=== PATIENT | female | born 1940 | race Caucasian/White ===

== ENCOUNTER 2018-07-04 08:47 | Observation (INO) | payer MEDICARE, OTHER ==
[~2018-07-04] VITALS: Ht 154.9 cm; Wt 77.3 kg
[2018-07-04 09:27] LABS: BASOPHILS % (AUTO) 0.5 % (0.0-5.0); EOSINOPHILS % (AUTO) 1.3 % (0.0-8.0); HEMATOCRIT 34.8 % (36-48); LYMPHOCYTES % (AUTO) 22.2 % (21.0-51.0); MEAN CORPUSCULAR HEMOGLOBIN 30.3 pg (27.0-33.0); MEAN CORPUSCULAR HGB CONC 34.2 g/dL (32.0-36.0); MEAN CORPUSCULAR VOLUME 88.6 fL (79-99); MONOCYTES % (AUTO) 7.3 % (3.0-13.0); NEUTROPHILS % (AUTO) 68.7 % (40.0-77.0); PLATELET COUNT (AUTO) 231 K/uL (130-400); RED BLOOD CELL COUNT(AUTO) 3.93 MIL/uL (4.00-5.50); RED CELL DISTRIBUTION WIDTH 14.3 % (11.0-15.5); WHITE BLOOD COUNT (AUTO) 5.3 K/uL (4.8-10.8)
[2018-07-04 09:36] LABS: CREATININE 0.9 mg/dL (0.5-1.5); POTASSIUM 3.7 mmol/L (3.5-5.1)
[2018-07-04 09:41] LABS: BILIRUBIN,TOTAL 0.7 mg/dL (0.2-1.0); TOTAL PROTEIN, SERUM 7.9 g/dL (6.0-8.3)
[2018-07-04 10:03] LABS: B-TYPE NATRIURETIC PEPTIDE 688 pg/mL (0-100)
[2018-07-04 10:57] LABS: APPEARANCE,URINE Clear (CLEAR); BILIRUBIN,URINE Negative (NEGATIVE); COLOR,URINE Yellow (YELLOW); GLUCOSE, URINE (UA) Negative (NEGATIVE); KETONES,URINE Negative (NEGATIVE); LEUKOCYTE ESTERASE ,URINE Trace (NEGATIVE); NITRATE,URINE Negative (NEGATIVE); OCCULT BLOOD,URINE Negative (NEGATIVE); PROTEIN,URINE Negative (NEGATIVE); UROBILINOGEN,URINE 0.2 mg/dL (0.2-1.0)
[2018-07-04 11:21] LABS: BACTERIA,URINE Rare /HPF (None Seen); RBC,URINE 0-1 /HPF (0-1); SQUAMOUS EPITHELIAL CELL,UR Rare /HPF (0-2)
[2018-07-04] MEDS ORDERED: FUROSEMIDE 10 MG/ML 2ML VIAL ONE (11:30)
[2018-07-04] MEDS ORDERED: SODIUM CHLORIDE 0.9% 1000ML 1,000 ML IV SCH (16:45)
[2018-07-04] MEDS ORDERED: SODIUM CHLORIDE 0.9% 1000ML 1,000 ML IV ONE (19:15)
[2018-07-04 19:50] LABS: CREATINE KINASE, TOTAL 68 U/L (21-232); MYOGLOBIN 41 ng/mL (10-92); TROPONIN I < 0.04 ng/mL (0.00-0.06)
[2018-07-04 20:28] VITALS: BP 146/90
[2018-07-04 23:00] VITALS: BP 141/77
[2018-07-05 03:00] VITALS: BP 138/64
[2018-07-05 04:04] LABS: HEMATOCRIT 34.1 % (36-48); MEAN CORPUSCULAR HEMOGLOBIN 29.7 pg (27.0-33.0); MEAN CORPUSCULAR HGB CONC 33.5 g/dL (32.0-36.0); MEAN CORPUSCULAR VOLUME 88.8 fL (79-99); NUCLEATED RED BLOOD CELLS 0.1 % (0.0-0.19); PLATELET COUNT (AUTO) 198 K/uL (130-400); RED BLOOD CELL COUNT(AUTO) 3.84 MIL/uL (4.00-5.50); RED CELL DISTRIBUTION WIDTH 14.1 % (11.0-15.5); WHITE BLOOD COUNT (AUTO) 4.6 K/uL (4.8-10.8)
[2018-07-05 04:30] LABS: CARBON DIOXIDE 34 mmol/L (21-32); CHLORIDE 103 mmol/L (101-111); CREATINE KINASE, TOTAL 64 U/L (21-232); CREATININE 0.9 mg/dL (0.5-1.5); GLOMERULAR FILTR. RATE CALC 65 mL/min (>60); GLUCOSE,RANDOM 95 mg/dL (70-105); MYOGLOBIN 45 ng/mL (10-92); POTASSIUM 3.3 mmol/L (3.5-5.1); SODIUM SERUM 144 mmol/L (136-145); TROPONIN I < 0.04 ng/mL (0.00-0.06); UREA NITROGEN, BLOOD 16 mg/dL (7-18)
[2018-07-05 04:36] LABS: B-TYPE NATRIURETIC PEPTIDE 469 pg/mL (0-100)
[2018-07-05 07:44] VITALS: BP 139/81
--- NOTE | 2018-07-05 08:03 | NUR ---
Report given to Ant Martinez R.N. Patient in stable condition.
[2018-07-05] MEDS ORDERED: ENOXAPARIN SODIUM 40 MG/0.4 ML SYRINGE SQ SCH (09:00)
[2018-07-05] MEDS: FAMOTIDINE/PF 20 MG/2 ML VIAL IV SCH (09:12)
[2018-07-05] MEDS: FUROSEMIDE 40 MG TABLET PO SCH (09:12)
[2018-07-05 11:34] VITALS: BP 135/72
[2018-07-05] MEDS ORDERED: METOPROLOL TARTRATE 25 MG TAB PO SCH (12:49)
[2018-07-05 13:15] LABS: CREATINE KINASE, TOTAL 89 U/L (21-232); MYOGLOBIN 61 ng/mL (10-92); TROPONIN I < 0.04 ng/mL (0.00-0.06)
[2018-07-05 16:22] VITALS: BP 144/80
--- NOTE | 2018-07-05 16:31 | NUR ---
DC PLAN VISITED WITH PATIENT. PATIENT LIVES WITH SON. INDEPENDENT ABLE TO PERFORM ADL'S. PATIENT HAS NO SERVICES OR DME'S. FEELS SAFE TO RETURN HOME. Addendum: 07/05/18 at 1631 by LUCAS VOGT RN CM Amended: Links added.
[2018-07-05] MEDS ORDERED: APIX5TAB PO (16:43)
[2018-07-05] MEDS ORDERED: LOSA25TA41 PO (16:43)
[2018-07-05] MEDS ORDERED: MULT-88 PO (16:43)
[2018-07-05] MEDS ORDERED: MAGN500C15 PO (16:43)
[2018-07-05] MEDS ORDERED: METO-391 PO (16:43)
[2018-07-05] MEDS ORDERED: FURO20TA4 PO (16:43)
[2018-07-05] MEDS ORDERED: SIME125C81 PO (16:43)
[2018-07-05] MEDS ORDERED: METO-409 PO (16:43)
[2018-07-05] MEDS ORDERED: SIMV10TA6 PO (16:43)
[2018-07-05 19:59] VITALS: BP 122/65
[2018-07-05] MEDS ORDERED: POTASSIUM CHLORIDE 20MEQ/100ML 100 ML IV PRN (21:00)
[2018-07-05] MEDS ORDERED: POTASSIUM CHLORIDE 10% ELIXIR 20 MEQ/15 ML UDCUP PO PRN (21:00)
[2018-07-05] MEDS ORDERED: LIDOCAINE HCL-MPF 1% 2ML VIAL IVP PRN (21:00)
[2018-07-05] MEDS: APIXABAN 5 MG TABLET PO SCH (22:24)
[2018-07-05] MEDS: METOPROLOL TARTRATE 25 MG TAB PO SCH (22:24)
[2018-07-05 23:31] VITALS: BP 127/87
[2018-07-06 04:02] VITALS: BP 134/64
[2018-07-06 06:00] LABS: HEMATOCRIT 35.9 % (36-48); MEAN CORPUSCULAR HEMOGLOBIN 30.2 pg (27.0-33.0); MEAN CORPUSCULAR HGB CONC 34.2 g/dL (32.0-36.0); MEAN CORPUSCULAR VOLUME 88.4 fL (79-99); PLATELET COUNT (AUTO) 223 K/uL (130-400); RED BLOOD CELL COUNT(AUTO) 4.06 MIL/uL (4.00-5.50); WHITE BLOOD COUNT (AUTO) 4.6 K/uL (4.8-10.8)
[2018-07-06 06:08] LABS: MAGNESIUM 1.9 mg/dL (1.80-2.40); POTASSIUM 3.2 mmol/L (3.5-5.1)
[2018-07-06] MEDS: POTASSIUM CHLORIDE 20 MEQ ERTAB PO PRN ×3 (06:56→11:56)
[2018-07-06 06:59] LABS: B-TYPE NATRIURETIC PEPTIDE 307 pg/mL (0-100)
[2018-07-06 07:51] VITALS: BP 119/95
[2018-07-06] MEDS: FAMOTIDINE/PF 20 MG/2 ML VIAL IV SCH (08:55)
[2018-07-06] MEDS: APIXABAN 5 MG TABLET PO SCH (08:55)
[2018-07-06] MEDS: FUROSEMIDE 40 MG TABLET PO SCH (08:56)
[2018-07-06] MEDS: METOPROLOL TARTRATE 25 MG TAB PO SCH (08:56)
[2018-07-06] MEDS ORDERED: LOSARTAN 50 MG TABLET PO SCH (09:00)
[2018-07-06 11:06] VITALS: BP 90/63
[2018-07-06 16:15] VITALS: BP 101/69
[2018-07-06] MEDS ORDERED: FURO20TA4 PO (16:30)
== END 2018-07-06 16:50 | disposition home or self-care (01) ==
LOC: EDH 08:47 → EDHIP 16:10 → 2DH 19:44
PROVIDERS: ADMIT Internal Medicine; ATTEND Internal Medicine
DX: I11.0 Hypertensive heart disease with heart failure (principal); I50.43 Acute on chronic combined systolic (congestive) and diastolic (congestive) heart failure; I48.2 Chronic atrial fibrillation; E78.5 Hyperlipidemia, unspecified; D68.59 Other primary thrombophilia; E66.9 Obesity, unspecified; I25.5 Ischemic cardiomyopathy; I42.0 Dilated cardiomyopathy; I48.0 Paroxysmal atrial fibrillation; G62.9 Polyneuropathy, unspecified; F17.210 Nicotine dependence, cigarettes, uncomplicated; F03.90 Unspecified dementia, unspecified severity, without behavioral disturbance, psychotic disturbance, mood disturbance, and anxiety; Z80.1 Family history of malignant neoplasm of trachea, bronchus and lung; Z82.49 Family history of ischemic heart disease and other diseases of the circulatory system; Z86.73 Personal history of transient ischemic attack (TIA), and cerebral infarction without residual deficits; Z90.710 Acquired absence of both cervix and uterus; Z92.21 Personal history of antineoplastic chemotherapy; Z95.810 Presence of automatic (implantable) cardiac defibrillator; Z79.01 Long term (current) use of anticoagulants; Z79.899 Other long term (current) drug therapy
CPT/HCPCS: 36415 ×3; 71045; 71275; 80048 ×2; 80053; 81001; 82550 ×3; 83735; 83874 ×3; 83880 ×3; 84484 ×4; 85025; 85027 ×2; 93005 ×4; 96372; 96374; 96376; 99284; A4600; G0378 ×49; J1650; J1940; J3490 ×2; J7030

== ENCOUNTER 2020-02-02 23:57 | Inpatient (IN) | payer MEDICARE ==
[~2020-02-02] VITALS: Ht 157.5 cm; Wt 90.3 kg
[~2020-02-02 23:57] MED LIST: APIX5TAB PO; CHOL200059 PO; FOLI0.4T2 PO; FURO20TA4 PO; LEVO500T89 PO; LOSA25TA41 PO; MAGN500C15 PO; METO-409 PO; MULT-1203 PO; PRED20B PO; PREG50CA63 PO; SIMV10TA97 PO
[2020-02-03] MEDS ORDERED: METHYLPREDNISOLONE SOD SUCC 125MG/2ML VIAL ONE (00:29)
[2020-02-03] MEDS ORDERED: ALBUTEROL INHALER 90MCG/INH IH ONE (00:29)
[2020-02-03 00:44] LABS: BASOPHILS % (AUTO) 0.2 % (0.0-5.0); EOSINOPHILS % (AUTO) 2.2 % (0.0-8.0); LYMPHOCYTES % (AUTO) 23.1 % (21.0-51.0); MEAN CORPUSCULAR HEMOGLOBIN 29.3 pg (27.0-33.0); MEAN CORPUSCULAR HGB CONC 32.9 g/dL (32.0-36.0); MEAN CORPUSCULAR VOLUME 89.3 fL (79-99); MONOCYTES % (AUTO) 7.5 % (3.0-13.0); NEUTROPHILS % (AUTO) 66.6 % (40.0-77.0); PLATELET COUNT (AUTO) 190 K/uL (130-400); RED BLOOD CELL COUNT(AUTO) 3.92 MIL/uL (4.00-5.50); RED CELL DISTRIBUTION WIDTH 13.4 % (11.0-15.5); WHITE BLOOD COUNT (AUTO) 5.1 K/uL (4.8-10.8)
[2020-02-03 00:46] LABS: INR 0.97 (0.85-1.15); PARTIAL THROMBOPLASTIN TIME 24.3 SEC (26.3-35.5); PROTHROMBIN TIME 10.5 SEC (9.6-11.6)
[2020-02-03 00:48] LABS: CREATININE 1.7 mg/dL (0.5-1.5)
[2020-02-03 00:53] LABS: ALBUMIN 3.4 g/dL (3.5-5.0); BILIRUBIN,TOTAL 0.3 mg/dL (0.2-1.0); TOTAL PROTEIN, SERUM 7.3 g/dL (6.0-8.3)
[2020-02-03 01:01] LABS: ABG BASE EXCESS 0.5 mmol/L (-2.0-3.0); ABG HCO3 24.8 mmol/L (21.0-28.0); ABG OXYGEN SATURATION 98.3 % (95.0-99.0); ABG PCO2 39 mmHg (32-45)
[2020-02-03] MEDS ORDERED: SODIUM CHLORIDE 0.9% 1000ML 1,000 ML IV SCH (02:46)
[2020-02-03] MEDS ORDERED: NITROGLYCERIN 0.4 MG SL TAB SL PRN (03:00)
[2020-02-03] MEDS ORDERED: ALBUTEROL SULFATE 0.083% 2.5 MG/3 ML INH IH PRN (03:00)
[2020-02-03] MEDS ORDERED: ONDANSETRON HCL 4 MG/2 ML VIAL IV PRN (03:00)
[2020-02-03] MEDS ORDERED: ACETAMINOPHEN 325 MG TAB PO PRN ×2 (03:00)
[2020-02-03] MEDS ORDERED: SODIUM CHLORIDE 0.9% 500ML 500 ML IV ONE (04:24)
[2020-02-03] MEDS ORDERED: ALBUTEROL INHALER 90MCG/INH IH PRN (05:15)
[2020-02-03] MEDS ORDERED: DILTIAZEM HCL 60 MG TABLET PO SCH (05:15)
[2020-02-03] MEDS ORDERED: DILTIAZEM HCL 60 MG TABLET ONE (05:21)
[2020-02-03] MEDS ORDERED: IPRATROPIUM/ALBUTEROL SULFATE 3 ML SOLUTION IH SCH (06:00)
[2020-02-03] MEDS ORDERED: APIXABAN 2.5 MG TABLET PO ONE (08:37)
[2020-02-03] MEDS ORDERED: SIMVASTATIN 10 MG TABLET ONE (08:37)
[2020-02-03] MEDS ORDERED: METOPROLOL TARTRATE 50 MG TAB ONE (08:38)
[2020-02-03] MEDS ORDERED: PREGABALIN 25 MG CAP ONE (08:38)
[2020-02-03] MEDS ORDERED: HEPARIN SODIUM 5000UNIT/ML 1ML VIAL SQ SCH (09:00)
[2020-02-03] MEDS: PREGABALIN 25 MG CAP PO SCH ×2 (09:00→21:01)
[2020-02-03] MEDS: SIMVASTATIN 10 MG TABLET PO SCH (09:00)
[2020-02-03] MEDS: APIXABAN 5 MG TABLET PO SCH ×2 (09:00→21:01)
[2020-02-03] MEDS: METOPROLOL SUCCINATE 50 MG TAB.SR.24H PO SCH (09:00)
[2020-02-03] MEDS ORDERED: METOPROLOL SUCCINATE 50 MG TAB.SR.24H PO SCH (09:00)
[2020-02-03 11:30] VITALS: BP 129/62
[2020-02-03] MEDS ORDERED: MATURE MULTI PO (13:19)
[2020-02-03] MEDS ORDERED: MEMA7CAP2 PO (13:19)
[2020-02-03] MEDS ORDERED: CHOL500051 PO (13:19)
[2020-02-03] MEDS ORDERED: VITA100049 PO (13:19)
[2020-02-03] MEDS ORDERED: SIME125C81 PO (13:19)
[2020-02-03 16:00] VITALS: BP 127/71
--- NOTE | 2020-02-03 17:37 | NUR ---
VISHAL NOTE/IA UNABLE TO MEET IN ROOM WITH PATIENT, NEXT OF KIN CALLED, AXEL LUA. PER SON, PATIENT LIVES WITH HIM, IS INDEPENDENT WITH ADLS, NO USE OF HOME HEALTH OR PROVIDER, HAS FREDI AND PORSHA, AND ALVAREZ IN SOD IN USE. PER SON, FEELS SAFE FOR PATIENT TO RETURN HOME ONCE DISCHARGED. Addendum: 02/03/20 at 1739 by GLORY COCHRAN RN CM Amended: Links added.
--- NOTE | 2020-02-03 17:48 | NUR ---
Neeraj ROMAN PA-C IN ROOM FOR CONSULT, ASSESSING/SPEAKING WITH PT. RE:PLAN OF CARE. QUESTIONS ANSWERED BY JOSE.
[2020-02-03 20:00] VITALS: BP 115/65
[2020-02-03 21:34] VITALS: BP 130/59
--- NOTE | 2020-02-03 23:55 | NUR ---
blood culture RECEIVED RESULT FROM LAB BLOOD CULTURE GRAM + COCCI IN CLUSTER. CARPET REPAIRER LUCIO INFORMED. SHE SAID SHE WILL PUT ON ORDERS FOR ANTIBIOTIC. PENDING
[2020-02-04] VITALS (7 sets, daily range): BP systolic 109–155; BP diastolic 51–76
[2020-02-04] MEDS ORDERED: VANCOMYCIN PROTOCOL PER PHARMACY IV SCH (00:15)
[2020-02-04] MEDS: VANCOMYCIN 1GM+NS 250ML 250 ML IV SCH ×2 (02:06→04:11)
[2020-02-04] MEDS: APIXABAN 5 MG TABLET PO SCH ×2 (09:00→09:56)
[2020-02-04] MEDS: PREGABALIN 25 MG CAP PO SCH ×2 (09:57→20:55)
[2020-02-04] MEDS: SIMVASTATIN 10 MG TABLET PO SCH (09:57)
[2020-02-04] MEDS: METOPROLOL SUCCINATE 50 MG TAB.SR.24H PO SCH (09:57)
[2020-02-04] MEDS ORDERED: COMPOUND IV REFRIGERATED 1 EACH IVSOLN MISC PRN (13:30)
[2020-02-04] MEDS ORDERED: APIXABAN 5 MG TABLET PO SCH (21:30)
[2020-02-05] VITALS (7 sets, daily range): BP systolic 120–159; BP diastolic 69–83
[2020-02-05 03:40] LABS: BASOPHILS % (AUTO) 0.1 % (0.0-5.0); EOSINOPHILS % (AUTO) 0.3 % (0.0-8.0); HEMATOCRIT 30.6 % (36-48); LYMPHOCYTES % (AUTO) 13.9 % (21.0-51.0); MEAN CORPUSCULAR HEMOGLOBIN 29.7 pg (27.0-33.0); MONOCYTES % (AUTO) 8.7 % (3.0-13.0); NEUTROPHILS % (AUTO) 76.7 % (40.0-77.0); PLATELET COUNT (AUTO) 182 K/uL (130-400); RED CELL DISTRIBUTION WIDTH 13.7 % (11.0-15.5); WHITE BLOOD COUNT (AUTO) 11.5 K/uL (4.8-10.8)
[2020-02-05 04:04] LABS: ALBUMIN 3.5 g/dL (3.5-5.0); BILIRUBIN,TOTAL 0.7 mg/dL (0.2-1.0); CREATININE 1.2 mg/dL (0.5-1.5); POTASSIUM 4.3 mmol/L (3.5-5.1); TOTAL PROTEIN, SERUM 7.2 g/dL (6.0-8.3)
--- NOTE | 2020-02-05 05:30 | NUR ---
Patient went to the bathroom and came back to lay in bed when she started feeling tightness to her chest. Nitroglycerin SL tablet was administered and pain subsided. Patient does not complain of chest pain anymore. vitals signs stable. Will let chili maker in am know when they round. Will monitor patient closely.
[2020-02-05] MEDS ORDERED: VANCOMYCIN 750MG + NS 250 ML IV SCH ×2 (09:00)
--- NOTE | 2020-02-05 09:00 | NUR ---
AM ASSESSMENT AWAKE AND ALERT, DENIES CHEST PAIN OR DISCOMFORT, NO SOB OR LABORED RESPIRATIONS.
[2020-02-05] MEDS: APIXABAN 5 MG TABLET PO SCH ×2 (10:29→20:31)
[2020-02-05] MEDS: SIMVASTATIN 10 MG TABLET PO SCH (10:29)
[2020-02-05] MEDS: PREGABALIN 25 MG CAP PO SCH ×2 (10:29→20:31)
[2020-02-05] MEDS: METOPROLOL SUCCINATE 50 MG TAB.SR.24H PO SCH (10:29)
[2020-02-05 21:01] LABS: APPEARANCE,URINE Clear (CLEAR); BILIRUBIN,URINE Negative (NEGATIVE); COLOR,URINE Yellow (YELLOW); GLUCOSE, URINE (UA) Negative (NEGATIVE); KETONES,URINE Negative (NEGATIVE); LEUKOCYTE ESTERASE ,URINE Small (NEGATIVE); NITRATE,URINE Negative (NEGATIVE); OCCULT BLOOD,URINE Moderate (NEGATIVE); PROTEIN,URINE POS 1+ mg/dL (NEGATIVE)
[2020-02-05 21:23] LABS: BACTERIA,URINE Few /HPF (None Seen); RBC,URINE 0-1 /HPF (0-1); SQUAMOUS EPITHELIAL CELL,UR Few /HPF (0-2); TRANSITIONAL EPI CELLS,URINE Few /HPF (None Seen)
[2020-02-06 03:38] LABS: BASOPHILS % (AUTO) 0.4 % (0.0-5.0); EOSINOPHILS % (AUTO) 1.9 % (0.0-8.0); HEMATOCRIT 31.2 % (36-48); LYMPHOCYTES % (AUTO) 19.1 % (21.0-51.0); MEAN CORPUSCULAR HEMOGLOBIN 29.6 pg (27.0-33.0); MEAN CORPUSCULAR HGB CONC 33.7 g/dL (32.0-36.0); MEAN CORPUSCULAR VOLUME 87.9 fL (79-99); MONOCYTES % (AUTO) 11.7 % (3.0-13.0); NEUTROPHILS % (AUTO) 66.7 % (40.0-77.0); PLATELET COUNT (AUTO) 164 K/uL (130-400); RED BLOOD CELL COUNT(AUTO) 3.55 MIL/uL (4.00-5.50); RED CELL DISTRIBUTION WIDTH 13.2 % (11.0-15.5); WHITE BLOOD COUNT (AUTO) 5.7 K/uL (4.8-10.8)
[2020-02-06 03:58] VITALS: BP 135/78
[2020-02-06 03:59] LABS: ALBUMIN 3.1 g/dL (3.5-5.0); BILIRUBIN,TOTAL 0.9 mg/dL (0.2-1.0); CREATININE 1.1 mg/dL (0.5-1.5); POTASSIUM 3.9 mmol/L (3.5-5.1); TOTAL PROTEIN, SERUM 6.7 g/dL (6.0-8.3)
[2020-02-06] MEDS ORDERED: VANCOMYCIN 1GM+NS 250ML 250 ML IV SCH (09:00)
[2020-02-06 09:29] VITALS: BP 136/80
[2020-02-06] MEDS: APIXABAN 5 MG TABLET PO SCH (10:14)
[2020-02-06] MEDS: METOPROLOL SUCCINATE 50 MG TAB.SR.24H PO SCH (10:14)
[2020-02-06] MEDS: SIMVASTATIN 10 MG TABLET PO SCH (10:14)
[2020-02-06] MEDS: PREGABALIN 25 MG CAP PO SCH (10:14)
[2020-02-06 11:56] VITALS: BP 154/61
== END 2020-02-06 14:40 | disposition home or self-care (01) | DRG 189 ==
LOC: EDH 23:57 → EDHIP 02-03 02:46 → OBSVTOIN 02-03 02:46 → 4DH 02-03 09:52
PROVIDERS: ADMIT Internal Medicine; ATTEND Internal Medicine
DX: J96.01 Acute respiratory failure with hypoxia (principal); J44.1 Chronic obstructive pulmonary disease with (acute) exacerbation; N17.9 Acute kidney failure, unspecified; I48.20 Chronic atrial fibrillation, unspecified; I50.22 Chronic systolic (congestive) heart failure; J45.901 Unspecified asthma with (acute) exacerbation; R78.81 Bacteremia; D68.69 Other thrombophilia; E78.5 Hyperlipidemia, unspecified; Z20.828 Contact with and (suspected) exposure to other viral communicable diseases; F03.90 Unspecified dementia, unspecified severity, without behavioral disturbance, psychotic disturbance, mood disturbance, and anxiety; R53.81 Other malaise; B96.89 Other specified bacterial agents as the cause of diseases classified elsewhere; D72.829 Elevated white blood cell count, unspecified; E66.9 Obesity, unspecified; I11.0 Hypertensive heart disease with heart failure; Z68.36 Body mass index [BMI] 36.0-36.9, adult; Z91.040 Latex allergy status; Z91.018 Allergy to other foods; Z88.0 Allergy status to penicillin; Z91.048 Other nonmedicinal substance allergy status; Z85.9 Personal history of malignant neoplasm, unspecified
CPT/HCPCS: 36415; 36600; 71045; 80053; 80202; 81001; 82550; 82803; 83605; 83880; 84145; 84484; 85025; 85378; 85610; 85730; 86900; 86901; 87040; 87077; 87088; 87186; 87426; 87804; 93005; 93306; 93356; 93970; G0378; J2930; J3370; J7040; J7050; U0003

== ENCOUNTER 2021-10-12 01:05 | Emergency (ER) | payer MEDICARE ==
[~2021-10-12] VITALS: Ht 157.5 cm; Wt 90.7 kg
[~2021-10-12 01:05] MED LIST changes: -CHOL200059 PO; +CHOL500051 PO; -FOLI0.4T2 PO; +FOLI0.4T6 PO; -LEVO500T89 PO; -MAGN500C15 PO; +MAGN500C4 PO; +MATURE MULTI PO; +MEMA7CAP2 PO; -PRED20B PO; +SIME125C81 PO; +VITA100049 PO
[2021-10-12 01:57] LABS: BASOPHILS % (AUTO) 0.4 % (0.0-5.0); EOSINOPHILS % (AUTO) 2.1 % (0.0-8.0); HEMATOCRIT 38.3 % (36-48); LYMPHOCYTES % (AUTO) 30.3 % (21.0-51.0); MEAN CORPUSCULAR HEMOGLOBIN 30.5 pg (27.0-33.0); MEAN CORPUSCULAR HGB CONC 32.6 g/dL (32.0-36.0); MEAN CORPUSCULAR VOLUME 93.4 fL (79-99); MONOCYTES % (AUTO) 9.1 % (3.0-13.0); NEUTROPHILS % (AUTO) 58.1 % (40.0-77.0); PLATELET COUNT (AUTO) 214 K/uL (130-400); RED CELL DISTRIBUTION WIDTH 13.8 % (11.0-15.5); WHITE BLOOD COUNT (AUTO) 5.2 K/uL (4.8-10.8)
[2021-10-12] MEDS ORDERED: SOLU-MEDROL 125MG VIAL IVP ONE (02:00)
[2021-10-12] MEDS ORDERED: IPRATROPIUM/ALBUTEROL SULFATE 3 ML SOLUTION IH ONE (02:00)
[2021-10-12] MEDS ORDERED: FLUTICASONE PROPIONATE 50MCG/SPRAY 16 GM BOTTLE EN SCH (02:00)
[2021-10-12 02:06] LABS: CREATININE 1.6 mg/dL (0.5-1.5); POTASSIUM 3.7 mmol/L (3.5-5.1)
[2021-10-12 02:14] LABS: ALBUMIN 3.5 g/dL (3.5-5.0); BILIRUBIN,TOTAL 0.4 mg/dL (0.2-1.0); MAGNESIUM 2.1 mg/dL (1.80-2.40); TOTAL PROTEIN, SERUM 7.4 g/dL (6.0-8.3)
[2021-10-12] MEDS ORDERED: AZIT1PAC7 PO (02:49)
[2021-10-12] MEDS ORDERED: FLUT16H NASAL (02:49)
[2021-10-12 02:53] VITALS: BP 124/64
[2021-10-12 02:58] LABS: B-TYPE NATRIURETIC PEPTIDE 192 pg/mL (0-100)
[2021-10-12] MEDS ORDERED: ALBUTEROL INHALER 90MCG/INH IH ONE (03:00)
== END 2021-10-12 03:10 | disposition home or self-care (01) ==
LOC: EDH 01:05
DX: R06.00 Dyspnea, unspecified (principal); R06.2 Wheezing; I48.91 Unspecified atrial fibrillation; Z98.890 Other specified postprocedural states; Z88.0 Allergy status to penicillin; Z91.040 Latex allergy status; Z91.018 Allergy to other foods; Z79.899 Other long term (current) drug therapy; Z79.01 Long term (current) use of anticoagulants
CPT/HCPCS: 36415; 71045; 80053; 83735; 83880; 84484; 85025; 93005; 94640; 96374; 99285; J2930